=== PATIENT | female | born 1985 | race African-American/Black ===

== ENCOUNTER 2017-09-22 21:44 | Emergency (ER) | payer OTHER ==
[~2017-09-22] VITALS: Ht 172.7 cm; Wt 84.0 kg
[2017-09-23 02:32] VITALS: BP 117/69
== END 2017-09-23 02:32 | disposition home or self-care (01) ==
LOC: ER 21:44
DX: S09.8XXA Other specified injuries of head, initial encounter (principal); V00.311A Fall from snowboard, initial encounter; Y93.89 Activity, other specified; Y92.89 Other specified places as the place of occurrence of the external cause
CPT/HCPCS: 81025; 99283; Z7610